=== PATIENT | female | born 1945 | race Caucasian/White ===

== ENCOUNTER 2021-09-10 18:20 | Emergency (ER) | payer MEDICARE, BC ==
[~2021-09-10] VITALS: Ht 167.6 cm; Wt 70.9 kg
[~2021-09-10 18:20] MED LIST: ATOR20TA PO; CHOL100046 PO; HYDR12.5 PO; INSU100C4 SQ; LANTUS SQ; LOSA50TA3 PO; OSC500T PO
[2021-09-10 18:46] VITALS: BP 146/69
[2021-09-10 19:00] LABS: BASOPHILS # (AUTO) 0.1 X10'3 (0-0.2); BASOPHILS % (AUTO) 0.6 % (0-1); EOSINOPHILS # (AUTO) 0.1 X10'3 (0-0.9); EOSINOPHILS % (AUTO) 1.6 % (0-6); HEMATOCRIT 31.8 % (35.0-45.0); HEMOGLOBIN 10.6 g/dl (12.0-16.0); LYMPHOCYTES # (AUTO) 1.1 X10'3 (1.1-4.8); LYMPHOCYTES % (AUTO) 12.9 % (21-51); MEAN CORPUSCULAR HGB CONC 33.4 g/dL (33.0-36.5); MEAN CORPUSCULAR VOLUME 86.8 FL (78-98); MEAN PLATELET VOLUME 6.9 FL (7.4-10.4); MONOCYTES # (AUTO) 0.7 X10'3 (0-0.9); MONOCYTES % (AUTO) 8.1 % (2-12); NEUTROPHILS # (AUTO) 6.3 X10'3 (1.8-7.7); NEUTROPHILS % (AUTO) 76.8 % (42-75); PLATELET COUNT 394 X10'3 (140-440); RED BLOOD COUNT 3.66 X10'6 (4.20-5.60); RED CELL DISTRIBUTION WIDTH 15.3 % (11.5-14.5); WHITE BLOOD COUNT 8.2 X10'3 (4.5-11.0)
[2021-09-10 19:13] LABS: ALANINE AMINOTRANSFERASE 24 U/L (12-78); ALBUMIN 2.6 G/DL (3.4-5.0); ALBUMIN/GLOBULIN RATIO 0.5 (1.1-1.5); ALKALINE PHOSPHATASE 97 IU/L (46-116); ANION GAP 7 (8-16); ASPARTATE AMINO TRANSFERASE 23 U/L (10-37); BILIRUBIN,TOTAL 0.3 MG/DL (0.1-1.0); BLOOD UREA NITROGEN 21 MG/DL (7-18); BUN/CREATININE RATIO 22.6 (6.6-38.0); C-REACTIVE PROTEIN 5.38 MG/DL (0.0-0.5); CALCIUM 9.9 MG/DL (8.5-10.1); CHLORIDE 97 MMOL/L (99-107); CREATININE 0.93 MG/DL (0.40-0.90); GLUCOSE 152 MG/DL (70-104); POTASSIUM 4.3 MMOL/L (3.5-5.1); SODIUM 132 MMOL/L (135-145); TOTAL CARBON DIOXIDE 28.4 MMOL/L (24-32); eGFR 59 ML/MIN
[2021-09-10] MEDS ORDERED: dexamethasone 4mg tablet PO ONE (19:40)
[2021-09-10] MEDS ORDERED: triamcinolone acetonide 40mg/ml inj IM ONE (19:40)
[2021-09-10] MEDS ORDERED: MELO15TA13 PO (20:17)
== END 2021-09-10 21:32 | disposition home or self-care (01) ==
LOC: ER 18:21
DX: M19.042 Primary osteoarthritis, left hand (principal); G89.29 Other chronic pain; E10.9 Type 1 diabetes mellitus without complications; Z88.0 Allergy status to penicillin; Z79.4 Long term (current) use of insulin; Z79.899 Other long term (current) drug therapy
CPT/HCPCS: 36415; 73130; 80053; 84550; 85025; 85651; 86140; 96372; 99284; J3301

== ENCOUNTER 2021-10-17 12:51 | Emergency (ER) | payer MEDICARE, BC ==
[~2021-10-17] VITALS: Ht 157.5 cm; Wt 68.2 kg
[~2021-10-17 12:51] MED LIST changes: +MELO15TA13 PO
[2021-10-17 13:03] VITALS: BP 174/66
== END 2021-10-17 16:38 | disposition home or self-care (01) ==
LOC: ER 12:52
DX: M19.90 Unspecified osteoarthritis, unspecified site (principal); M79.644 Pain in right finger(s); M79.641 Pain in right hand; M79.642 Pain in left hand; M79.89 Other specified soft tissue disorders; E11.9 Type 2 diabetes mellitus without complications; G89.29 Other chronic pain; Z60.2 Problems related to living alone; Z88.0 Allergy status to penicillin; Z79.4 Long term (current) use of insulin; Z79.899 Other long term (current) drug therapy
CPT/HCPCS: 99283